=== PATIENT | male | born 1970 | race Two or more races ===

== ENCOUNTER 2023-12-27 08:00 | Outpatient (OUT) | payer OTHER, SELFPAY ==
[2023-12-27 08:25] LABS: Basophils Absolute Auto 0.1 10^3/uL (0.0-0.1); Basophils Percent Auto 2.3 % (0.2-2.0); Eosinophils Absolute Auto 0.3 10^3/uL (0.0-0.7); Hematocrit 45.9 % (42.0-54.0); Hemoglobin 14.9 g/dL (14.0-18.0); Immature Granulocytes Abs Auto 0.01 10^3/uL (0.00-0.03); Immature Granulocytes Pct Auto 0.2 % (0.0-0.5); Lymphocytes Absolute Auto 1.6 10^3/uL (1.2-3.8); Lymphocytes Percent Auto 31.2 % (20.5-60.0); Mean Corpuscular HGB Conc 32.5 g/dL (29.9-35.2); Mean Corpuscular Volume 95.4 fL (80.0-94.0); Monocytes Absolute Auto 0.5 10^3/uL (0.3-0.8); Monocytes Percent Auto 9.2 % (1.7-12.0); Neutrophils Absolute Auto 2.7 10^3/uL (1.4-6.5); Neutrophils Percent Auto 51.1 % (43.0-75.0); Platelet Count 229 10^3/uL (150-450); Red Blood Count 4.81 10^6/uL (4.70-6.10); Red Cell Distribution Width 11.5 % (11.0-15.0); White Blood Count 5.2 10^3/uL (4.0-11.0)
[2023-12-27 09:34] LABS: Alanine Aminotransferase 26 U/L (16-63); Albumin Globulin Ratio 1.2; Albumin Level 3.8 g/dL (3.4-5.0); Alkaline Phosphatase 46 U/L (46-116); Anion Gap 11.3; Aspartate Amino Transferase 12 U/L (15-37); BUN Creatinine Ratio 20.2; Bilirubin Total 0.8 mg/dL (0.2-1.0); Calcium 9.3 mg/dL (8.5-10.1); Carbon Dioxide 28.5 mmol/L (21.0-32.0); Chloride 102 mmol/L (98-107); Chol HDL Ratio 5.2; Cholesterol 244 mg/dL (<=200); Estimated GFR (African America >60 (>=60); Estimated GFR (Non-African Ame >60 (>=60); Globulin 3.3 g/dL; Glucose 90 mg/dL (74-106); HDL Cholesterol 47 mg/dL (40-60); Potassium 3.8 mmol/L (3.5-5.1); Sodium 138 mmol/L (136-145); Total Protein 7.1 g/dL (6.4-8.2); Triglycerides 73 mg/dL (<=150); VLDL CHOLESTEROL 14.6 mg/dL
[2023-12-27 09:44] LABS: Prostate Specific Antigen Scrn 1.14 ng/mL (<=4.00)
== END 2023-12-27 08:01 | disposition home or self-care (01) ==
LOC: LAB 08:05
PROVIDERS: PCP Nurse Practitioner Family; Visit Provider Nurse Practitioner Family
DX: Z13.228 Encounter for screening for other metabolic disorders (principal); Z12.5 Encounter for screening for malignant neoplasm of prostate; Z13.0 Encounter for screening for diseases of the blood and blood-forming organs and certain disorders involving the immune mechanism; Z13.220 Encounter for screening for lipoid disorders
CPT/HCPCS: 36415; 80053; 80061; 85025; G0103

== ENCOUNTER 2024-07-07 07:20 | Outpatient (OUT) | payer OTHER, SELFPAY ==
--- OUTSIDE RECORDS SUMMARY | 2024-07-07 07:28 | XMS_ITS | CCD ---
Author Organization [facility] Inform ion Partnership [facility] Care Team Providers Care Boat Patcher Plastic Name Role Phone DR RONEN CHANDLER Consulting Unavailable ESTER, KERA Caballero Attending Unavailable APLRACHAEL, KERA Caballero Admitting Unavailable HOUSE, DR PRINCE Primary Care Unavailable ESTER, KERA Caballero Consulting Unavailable HOUSE, DR PRINCE Attending Unavailable HOUSE, DR PRINCE Consulting Unavailable MOBILE, DR PRINCE Primary Care Unavailable HOUSE, DR PRINCE Admitting Unavailable RAMESH, DR RONEN Castano Consulting Unavailable JORGE LUIS FRANCISCO Consulting Unavailable Medications Current Medications Medication Drug Class(es) Dates Sig (Normalized) Sig (Original) omeprazole 20 mg delayed release oral capsule (1 source) Proton Pump Inhibitor Start: 12-25-2023 take 20 mg by mouth once daily Omeprazole Active 20 MG PO Daily December 25, 2023 12:00am Problems Problem Classification Problem Date Documented Da te Episodic/Chronic Disorders of lipid metabolism (2 sources) Hyperlipidemia; Translations: [Hyperlipidemia, unspecified] 01-21-2024 Chronic Esophageal disorders (2 sources) Gastroesophageal reflux disease; Translations: [Gastro-esophageal reflux disease without esophagitis] 12-25-2023 Chronic Other connective tissue disease (4 sources) Adhesive capsulitis of left shoulder; Translations: [ADHESIVE CAPSULITIS LEFT SHOULDER] Onset: 3 Episodic Other gastrointestinal disorders (1 source) Constipation; Translations: [Constipation, unspecified] 12-25-2023 Episodic Other gastrointestinal disorders (1 source) Constipation, unspecified; Translations: [Constipation, unspecified] 12-25-2023 Episodic Other non-traumatic joint disorders (4 sources) Other specific joint derangements of left shoulder, not elsewhere classified; Translations: [OTH SPEC JOINT DERANG LT SHLDR NEC] Onset: 3 Chronic Other screening for suspected conditions (not mental disorders or infectious disease) (10 sources) Patient encounter status; Translations: [Encounter for screening for malignant neoplasm of prostate] 12-25-2023 Episodic Results Test Name Value Interpretation Reference Range Facility Basophils Auto (Bld) [#/Vol] on 12-27-2023 Basophils (Bld) [#/Vol] 0.1 10 3/uL 0.0-0.1 [facility] Basophils/100 WBC Auto (Bld) on 12-27-2023 Basophils/100 WBC (Bld) 2.3 % 0.2-2.0 [facility] Cholesterol in LDL Calc [Mas s/Vol]on 12-27-2023 Cholesterol in LDL [Mass/Vol] 183.0 mg/dL [facility] Comment on above: <100 mg/dl [id number] 0-129 mg/dl NEAR OR ABOVE [id number] mg/dl BORDERLINE [id number] mg/dl HIGH>190 mg/dl VERY HIGH Cholesterol in VLDL Calc [Ma ss/Vol]on 12-27-2023 Cholesterol in VLDL [Mass/Vol] 14.6 mg/dL [facility] Eosinophils/100 WBC Auto (Bl d)on 12-27-2023 Eosinophils/100 WBC (Bld) 6.0 % 0.9-7.0 [facility] Erythrocyte distribution wid th Auto (RBC) [Ratio]on 12-27-2023 Erythrocyte distribution width (RBC) [Ratio] 11.5 % 11.0-15.0 [facility] Estimated glomerular filtrat ion rate (GFR) non- Americanon 12-27-2023 GFR/1.73 sq M.predicted among non-blacks MDRD (S/P/Bld) [Vol rate/Area] mL/min/{1.73_m2} >=60 [facility] Globulin Calc (S) [Mass/Vol] on 12-27-2023 Globulin (S) [Mass/Vol] 3.3 g/dL [facility] Hematocrit Auto (Bld) [Volum e fraction]on 12-27-2023 Hematocrit (Bld) [Volume fraction] 45.9 % 42.0-54.0 [facility] Hemoglobin [Mass/volume] in Bloodon 12-27-2023 Hemoglobin (Bld) [Mass/Vol] 14.9 g/dL 14.0-18.0 [facility] Laboratory - Chemistry and C hemistry - challengeon 12-27-2023 Albumin [Mass/Vol] 3.8 g/dL 3.4-5.0 [facility] ALP [Catalytic activity/Vol] 46 U/L 46-116 [facility] ALT [Catalytic activity/Vol] 26 U/L 16-63 [facility] AST [Catalytic activity/Vol] 12 U/L 15-37 [facility] Bilirubin [Mass/Vol] 0.8 mg/dL 0.2-1.0 [facility] Calcium [Mass/Vol] 9.3 mg/dL 8.5-10.1 [facility] Chloride [Moles/Vol] 102 mmol/L 98-107 [facility] Cholesterol [Mass/Vol] 244 mg/dL <=200 [facility] Cholesterol in HDL [Mass/Vol] 47 mg/dL 40-60 [facility] Comment on above: > or =60 mg/dl - LOW CARDIOVASCULAR RISK<40 mg/dl - HIGH CARDIOVASCULAR RISK CO2 [Moles/Vol] 28.5 mmol/L 21.0-32.0 [facility] Creatinine [Mass/Vol] 0.84 mg/dL 0.70-1.30 [facility] GFR/1.73 sq M.predicted MDRD (S/P/Bld) [Vol rate/Area] mL/min/{1.73_m2} >=60 [facility] Glucose [Mass/Vol] 90 mg/dL 74-106 [facility] Potassium [Moles/Vol] 3.8 mmol/L 3.5-5.1 [facility] Protein [Mass/Vol] 7.1 g/dL 6.4-8.2 [facility] Sodium [Moles/Vol] 138 mmol/L 136-145 [facility] Triglyceride [Mass/Vol] 73 mg/dL <=150 [facility] Urea nitrogen [Mass/Vol] 17.0 mg/dL 7.0-18.0 [facility] Urea nitrogen/Creatinine [Mass ratio] 20.2 mg/mg [facility] Laboratory - Hematology and Cell countson 12-27-2023 Immature granulocytes/100 WBC (Bld) 0.2 % 0.0-0.5 [facility] Leukocytes [#/volume] correc cristopher for nucleated erythrocytes in Blood by Automated counon 12-27-2023 WBC corrected for nucl RBC Auto (Bld) [#/Vol] 5.2 10 3/uL 4.0-11.0 [facility] Lymphocytes Auto (Bld) [#/Vo l]on 12-27-2023 Lymphocytes (Bld) [#/Vol] 1.6 10 3/uL 1.2-3.8 [facility] Lymphocytes/100 WBC Auto (Bl d)on 12-27-2023 Lymphocytes/100 WBC (Bld) 31.2 % 20.5-60.0 [facility] MCH Auto (RBC) [Entitic mass ]on 12-27-2023 MCH (RBC) [Entitic mass] 31.0 pg 25.9-34.0 [facility] MCHC Auto (RBC) [Mass/Vol]on 12-27-2023 MCHC (RBC) [Mass/Vol] 32.5 g/dL 29.9-35.2 [facility] MCV Auto (RBC) [Entitic vol] on 12-27-2023 MCV (RBC) [Entitic vol] 95.4 fL 80.0-94.0 [facility] Monocytes Auto (Bld) [#/Vol] on 12-27-2023 Monocytes (Bld) [#/Vol] 0.5 10 3/uL 0.3-0.8 [facility] Monocytes/100 WBC Auto (Bld) on 12-27-2023 Monocytes/100 WBC (Bld) 9.2 % 1.7-12.0 [facility] Neutrophils Auto (Bld) [#/Vo l]on 12-27-2023 Neutrophils (Bld) [#/Vol] 2.7 10 3/uL 1.4-6.5 [facility] Neutrophils/100 WBC Auto (Bl d)on 12-27-2023 Neutrophils/100 WBC (Bld) 51.1 % 43.0-75.0 [facility] No Panel Informationon 12-26 Eosinophils # (Auto) 0.3 10 3/uL 0.0-0.7 [facility] Immature Granulocyte # (Auto) 0.01 10 3/uL 0.00-0.03 [facility] Prostate Specific Antigen Screen 1.14 ng/mL <=4.00 [facility] Platelet mean volume Auto (B ld) [Entitic vol]on 12-27-2023 Platelet mean volume (Bld) [Entitic vol] 10.0 fL 9.5-13.5 [facility] Platelets Auto (Bld) [#/Vol] on 12-27-2023 Platelets (Bld) [#/Vol] 229 10 3/uL 150-450 [facility] RBC Auto (Bld) [#/Vol]on RBC (Bld) [#/Vol] 4.81 10 6/uL 4.70-6.10 [facility] Serum or plasma albumin/glob ulin mass ratioon 12-27-2023 Albumin/Globulin [Mass ratio] 1.2 {ratio} [facility] Serum or plasma anion gap de terminationon 12-27-2023 Anion gap [Moles/Vol] 11.3 mmol/L [facility] Serum or plasma total choles terol/high density lipoprotein (HDL) cholesterol mass christi 12-27-2023 Cholesterol.total/Ch olesterol in HDL [Mass ratio] 5.2 {ratio} [facility] Comment on above: 3.3 - 4.4 LOW RISK4. 4 - 7.1 AVERAGE RISK7.1 - 11.0 MODERATE RISK>11.0 HIGH RISK MRI SHOULDER LT WO CONon MRI SHOULDER LT WO CON EXAMINATION: MRI SHOULDER LT WO CON HISTORY: Derangement of left shoulder joint COMPARISON: No relevant comparison available. TECHNIQUE: A variety of imaging planes and parameters were utilized for visualization of suspected pathology. Imaging was performed without contrast. FINDINGS: ROTATOR CUFF REGION CUFF TENDONS: Moderately increased T2 signal within the supraspinatus tendon with suspected partial thickness tear along the undersurface. Mild strain of the subscapularis tendon. CUFF MUSCLES: Normal appearing muscles. DELTOID: Normal. No significant atrophy or tear. LONG BICEPS TENDON: Normal. No abnormal signal, attrition, or tear. LABRUM/BICEPS ANCHOR SUPERIOR: No visible labral tear or biceps anchor pathology. ANTERIOR/INFERIOR: No visible tear or attrition. POSTERIOR: No posterior labrum abnormality. CAPSULE No visible capsular laxity or thickening. AC JOINT REGION AC JOINT: Moderate osteoarthropathy with mild-moderate narrowing of the underlying coracoacromial arch. AC LIGAMENTS: Normal acromioclavicular ligament. CC LIGAMENTS: Normal coracoclavicular ligaments. ACROMION: Lateral downsloping acromion process. SUBACROMIAL BURSA: Normal. No significant effusion. HYALINE CARTILAGE: No visible cartilage narrowing or focal defect. OTHER BONES: Normal proximal humerus, glenoid, and coracoid. OTHER OBSERVATIONS: Negative. No other significant findings or glenohumeral effusion. IMPRESSION: 1. Suspect partial thickness undersurface tear of the supraspinatus tendon and generalized moderate tendinopathy/tendiniti s of the supraspinatus and infraspinatus tendons. 2. Moderate degenerative changes of the acromioclavicular joint and lateral downsloping acromion process. Electronically authenticated by: RONEN CHANDLER Date: 2022-12-22 09:18 Normal [facility] XR SHOULDER LT 2V or >on XR SHOULDER LT 2V or > EXAM: XR SHOULDER LT 2V or > HISTORY: Pain of left shoulder region COMPARISON: None. TECHNIQUE: 3 views of the left shoulder FINDINGS/ IMPRESSION: 1. Normal mineralization. 2. No acute fractures or dislocations. 3. Mild AC joint degeneration. Normal glenohumeral joint. 4. Unremarkable soft tissues. Electronically authenticated by: JORGE LUIS FRANCISCO Date: 2022-12-05 07:38 Normal [facility] Vital Signs Date Time Vital Sign Value Performing Clinician Samuel lopez 01-21-2024 08:00-0400 Body height 175.26 cm [facility] 01-21-2024 08:00-0400 Body mass index (BMI) [Ratio] 24.2 kg/m2 [facility] 01-21-2024 08:00-0400 Body weight 74.38 kg [facility] 01-21-2024 08:00-0400 Diastolic blood pressure 62 mm[Hg] [facility] 01-21-2024 08:00-0400 Heart rate 64 /min [facility] 01-21-2024 08:00-0400 SaO2% (BldA) [Mass fraction] 98 % [facility] 01-21-2024 08:00-0400 Systolic blood pressure 104 mm[Hg] [facility] 12-25-2023 09:03-0400 Body height 175.26 cm [facility] 12-25-2023 09:03-0400 Body mass index (BMI) [Ratio] 24.5 kg/m2 [facility] 12-25-2023 09:03-0400 Body weight 75.29 kg [facility] 12-25-2023 09:03-0400 Diastolic blood pressure 72 mm[Hg] [facility] 12-25-2023 09:03-0400 Heart rate 88 /min [facility] 12-25-2023 09:03-0400 SaO2% (BldA) [Mass fraction] 99 % [facility] 12-25-2023 09:03-0400 Systolic blood pressure 110 mm[Hg] [facility] Encounters Encounter Date Encounter Type Care Provider Facility Start: 01-21-2024 Patient encounter status [facility] Start: 01-21-2024 End: 01-21-2024 ambulatory [facility] Work Phone: Start: 01-21-2024 End: 01-21-2024 Encounter for general adult medical examination without abnormal findings [facility] Start: 01-21-2024 End: 01-21-[address] [facility] Physician [facility] Work Phone: Start: 12-27-2023 Non-patient / Non-visit [facility] Physician [facility] Work Phone: Start: 12-25-2023 End: 12-25-[address] [facility] Physician [facility] Work Phone: Start: 12-21-2022 End: 12-22-[address] RONEN CHANDLER Facility:[facility] Start: 11-29-2022 End: 11-30-[address] SURESH PONCE Facility:[facility] Plan of Treatment Date Care Activity Detail Author [facility] Payers Date Payer Category Payer Unknown [id number] 1970 Unknown [id number] 1959 [employer] [id number] [employer] [facility] [id number] Social History Date Type Detail Facility Start: 01-21-2024 Tobacco smoking stat us NJIS Never smoked tobacco (finding) [facility] Start: 1970 Sex Assigned At Male F [facility] Clinical Note 12-04-2022 Note Date & Type Note Facility 12-04-2022 Note PROCEDURE: XR SHOULD ER LT 2V or > HISTORY: Pain of left shoulder region , chronic COMPARISON: None. FINDINGS: BONES:Minimal degenerative changes of the acromioclavicular joint. Unremarkable humeral head and glenohumeral joint. SOFT TISSUES:No visible soft tissue swelling. EFFUSION:None visible. OTHER: Negative. IMPRESSION: 1. No acute bone abnormality. 2. Minimal degenerative changes of the acromioclavicular joint. Electronically authenticated by: RONEN CHANDLER Date: 2022-12-04 06:48 [facility] Evaluation note Note Date & Type Note Facility Evaluation note Diagnosis Onset Date Constipation acute GERD (gastroesophageal reflux disease) acute Screen for colon cancer acut e Screening for deficiency anemia acute Screening for lipid disorders acute Screening for metabolic disorder acute Screening for prostate cancer acute Hyperlipidemia acute Wellness examination acute [facility] Work Phone: Summary Purpose Family History Relationship Condition Age at Onset Recorded Date/T joyce Not Specified Malignant neoplasm Unknown Bowel dysfunction Unknown father Cerebrovascular accident (CVA) Unknown Not Specified Cerebrovascular accident (CVA) Unknown Advance Directives Advance Directive Response Recorded Date/ Time Advance Directives No December 20, 2023 2:54pm Chief Complaint and Reason for Visit Chief Complaint ESTABLISH wellness Reason for Visit Constipation GERD (gastroesophageal reflux disease) Screen for colon cancer Screening for deficiency anemia Screening for lipid disorders Screening for metabolic disorder Screening for prostate cancer Hyperlipidemia Wellness examination Additional Source Comments (unrecognized sect ion and content) No Status Records Found INFORMATION SOURCE (unrecogn ized section and content) DATE CREATED AUTHOR 12/28/2022 [facility] Teams (unrecognized sec tion and content) Team Status: Active Member Role Status Dates Simi Watts APRN CONTACT LENS MANUFACTURER-C Primary Care Provider Active Team Status: Inactive Member Role Status Dates Simi Watts APRN CONTACT LENS MANUFACTURER-C Primary Care Provider, Attending Provider Active Start: December 25, 2023 End: December 25, 2023 Team Status: Active Member Role Status Dates Simi Watts APRN CONTACT LENS MANUFACTURER-C Primary Care Provider, Attending Provider Active Start: December 27, 2023 Team Status: Inactive Member Role Status Dates Simi Watts APRN CONTACT LENS MANUFACTURER-C Primary Care Provider, Attending Provider Active Start: January 21, 2024 End: January 21, 2024 Goals (unrecognized section and content) Goals may be documented in a n alternate section FOR RECORDS PERTAINING TO PATIENTS WHO ARE OR HAVE BEEN ENROLLED IN A CHEMICAL DEPENDENCY/SUBSTANCEABUSE PROGRAM, SOME INFORMATION MAY BE OMITTED. This clinical summary was aggregated from multiple sources. Caution should be exercised in using it in the provision of clinical care. This summary normalizes information from multiple sources, and as a consequence, information in this document may materially change the coding, format and clinical context of patient data. In addition, data may be omitted in some cases. CLINICAL DECISIONS SHOULD BE BASED ON THE PRIMARY CLINICAL RECORDS. [facility] [employer] [facility]. provides no warranty or guarantee of the accuracy or completeness of information in this document.
[2024-07-07 08:16] LABS: Chol HDL Ratio 3.6; Cholesterol 202 mg/dL (<=200); HDL Cholesterol 56 mg/dL (40-60); Triglycerides 81 mg/dL (<=150); VLDL CHOLESTEROL 16.2 mg/dL
== END 2024-07-07 07:21 | disposition home or self-care (01) ==
LOC: LAB 07:23
PROVIDERS: PCP Nurse Practitioner Family; Visit Provider Nurse Practitioner Family
DX: E78.5 Hyperlipidemia, unspecified (principal)
CPT/HCPCS: 36415; 80061

== ENCOUNTER 2025-01-26 07:28 | Outpatient (OUT) | payer OTHER, SELFPAY ==
--- OUTSIDE RECORDS SUMMARY | 2025-01-21 04:36 | XMS_ITS | Continuity of Care Document ---
Author Organization [facility] Address [address] [place] [address] Phone Support Name Relationship Address Phone Donavan George Emergency Contact Unknown Simi Watts APRN Personal Relationship [address] [place] [address] Care Teams Patient Care Team Team Status: Active Member Role Status Dates Simi Watts APRN AIR POLLUTION AUDITOR-C Primary Care Provider Active Patient Care Team Team Status: Inactive Member Role Status Dates Simi Watts APRN AIR POLLUTION AUDITOR-C Primary Care Provider, Attending Provider Active Start: January 21, 2025 End: January 21, 2025 Chief Complaint and Reason for Visit Chief Complaint Admit Date wellness January 21, 2025 7:59a m Reason for Visit Admit Date Screen for colon cancer January 21, 2025 7 :59am Screening for deficiency anemia January 7:59am Screening for lipid disorders January 21, 2025 7:59am Screening for metabolic disorder January 7:59am Screening for prostate cancer January 21, 2025 7:59am Wellness examination January 21, 2025 7:59 am Allergies, Adverse Reactions, Alerts Allergen Type Severity Reaction Last Updated Verified Status Milk Containing Products (Dairy) Allergy Unknown Unknown Reaction January 21, 2025 8:00am Yes Active Social History Smoking Status Status Start Date End Date Date of Observa tion Never smoked tobacco (finding) January 21, 2025 8:10am Observation Status Observation Response Date of Response Patient Sex Male January 21, 2025 8 :35am Assigned Sex Male 1970 Family History Relationship Condition Age at Onset Recorded Date/T joyce mother Malignant neoplasm Unknown Bowel dysfunction Unknown father Cerebrovascular accident (CVA) Unknown paternal grandfather Cerebrovascular accident (CVA) Un known Problems Active Problems Medical Problem Onset Date Status Lesion of lip Active Screening for prostate cancer Ac tive Screen for colon cancer Active Screening for deficiency anemia Active Wellness examination Active Hyperlipidemia Active Screening for metabolic disorder Active Screening for lipid disorders Ac tive GERD (gastroesophageal reflux disease) Active Constipation Active Sore throat Active Medications Medication Status Dose Units Route Directions Qty Days St art Date Stop Date End Date Instructions Multivitamin (One-A-Day Essential) tablet Active 1 TAB PO Daily January 21, 2025 12:00a m Omeprazole 20 mg capsule,bertha yed release(DR/E C) Discont inued 20 MG PO Daily 30 December 25, 2023 12:00a m January 21, 2025 8:07a m Vital Signs Vital Reading Result Reference Range Collection Date/Time Height 69 [in_i] January 21, 2025 8:03am Weight 75.29 kg January 21, 2025 8:03am Body Temperature 97.1 [degF] 97.6-99.0 January 21, 8:03am Heart Rate 67 /min 60-100 January 21, 2025 8:03am Oxygen saturation by Pulse oximetry 98 % 95-10 0 January 21, 2025 8:03am BP Systolic 116 mm[Hg] 100-140 January 21, 2025 8:03am BP Diastolic 70 mm[Hg] 60-100 January 21, 2025 8:03am BMI (Body Mass Index) 24.5 kg/m2 January 212024 8:03am Advance Directives Advance Directive Response Recorded Date/ Time Advance Directives No December 20, 2023 2:54pm Insurance Providers Guarantor Robin Bills Address [address] [place] [address] Contact Info. Home Phone: Payer Policy Id Coverage Id Subscriber's Name Subscriber Id Effective Date Expiration Date [facility] [id number] Robin Bills [id number] Encounters Encounter Location(s) Arrival/Admit Date Discharge/Depart Date Provider(s) Departed Physician/Prov ider Office Visit [facility] Physician [facility] January 21, 2025 7:59am January 21, 2025 8:35am Simi Watts APRN CNP Recent Diagnosis Onset Date Admit Date Screen for colon cancer January 7:59am Screening for deficiency anemia January 21, 2025 7:59am Screening for lipid disorders Ju 2024 7:59am Screening for metabolic disorder January 21, 2025 7:59am Screening for prostate cancer Ju 2024 7:59am Wellness examination January 21, 2 7:59am Assessments Diagnosis Onset Date Resolution Status Admit Date Screen for colon cancer acute J une 2024 7:59am Screening for deficiency anemia acut e January 21, 2025 7:59am Screening for lipid disorders acute January 21, 2025 7:59am Screening for metabolic disorder acu te January 21, 2025 7:59am Screening for prostate cancer acute January 21, 2025 7:59am Wellness examination acute January 21, 2025 7:59am Plan of Treatment Future Tests Future scheduled test information is unavailable Pending Tests Test Name Ordered Date Scheduled Date Comprehensive Metabolic Panel January 21, 2025 8:1 9am Future Visits Future appointment information is unavailable Referrals to Other Providers Referral information is unavailable Future Procedures Procedure Name Ordered Date Scheduled Date AMB Cologuard January 21, 2025 8:14am Complete Blood Count Auto Diff January 21, 2025 8: 19am Lipid Panel January 21, 2025 8:19am PSA Screen (Yearly Only) January 21, 2025 8:19am Future Medications Future medication information is unavailable Patient Instructions Patient instructions are unavailable
--- OUTSIDE RECORDS SUMMARY | 2025-01-26 07:32 | XMS_ITS | Clinical Summary ---
Author Organization [facility] Address [address] [place] [place] [address] Care Team Providers Care Multifocal Button Generator Name Role Phone House, Torres King MD Primary Care Provider [phone] Allergies Active Allergy Reactions Criticality Noted Date Comments Fire Ant Swelling 11/23/2020 Milk-Related Compounds Unknown 01/03/2023 Medications Ascorbic Acid (VITAMIN C PO) Vitamin C Activ e Meloxicam (MOBIC PO) Mobic Active acetaminophen (Tylenol) 325 MG tablet Take by mouth. Active ibuprofen 200 MG tablet Take by mouth. Active Active Problems Problem Noted Date Diagnosed Date Arthritis of left acromioclavicular joint 2022 Internal derangement of left shoulder 01/03/2023 Family History Medical History Relation Name Comments Cancer Mother Relation Name Status Comments Father Alive Mother Alive Social History Tobacco Use Types Packs/Day Years Used Date Smoking Tobacco: Never Smokeless Tobacco: Never Tobacco Cessation:Counseling Given: Not Answered Alcohol Use Standard Drinks/Week Comments Yes 0 (1 standard drink = 0.6 oz pur e alcohol) socially Sex and Gender Information Value Date Recorded Sex Assigned at Not on file Legal Sex Male 12:17 PM EDT Gender Identity Not on file Sexual Orientation Not on file Last Filed Vital Signs Vital Sign Reading Time Taken Comments Blood Pressure - - Pulse - - Temperature - - Respiratory Rate - - Oxygen Saturation - - Inhaled Oxygen Concentration - - Weight 72.6 kg (160 lb) 12/18/2022 12:00 PM EDT Height 175.3 cm (5' 9 ) 12/18/2022 12:00 PM EDT Body Mass Index 23.63 12/18/2022 12:00 PM EDT Plan of Treatment Not on file Insurance Care Teams Multifocal Button Generator Relationship Specialty Start Date End Date Torres Sandoval MD [address] [place] [address] PCP - General Family Medicine 01/03/23
--- OUTSIDE RECORDS SUMMARY | 2025-01-26 07:32 | XMS_ITS | Clinical Summary ---
Author Organization [facility] Address [address] [place] [address] Care Team Providers Care Public Health Representative Name Role Phone Unavailable Primary Care Provider Unavailabl e Allergies Active Allergy Reactions Criticality Noted Date Comments Fire Ant Swelling 11/23/2020 Milk (Cow) Other (See Comments) 06/18/2017 Pt has had since child. He is unaware of rxn Medications ascorbic acid (VITAMIN C) 500 MG tablet Take 500 mg by mouth daily Active diclofenac (VOLTAREN) 75 MG EC tablet Take 75 mg by mouth 2 times daily 1 Active methylPREDNISol one (MEDROL DOSEPACK) 4 MG tablet FOLLOW PACKAGE INSTRUCTIONS 1 Active traZODone (DESYREL) 100 MG tablet Take 100 mg by mouth 1 Active Family History Medical History Relation Name Comments High Cholesterol Father Breast Cancer Mother Colon Polyps Mother Relation Name Status Comments Father Mother Sister Alive Social History Tobacco Use Types Packs/Day Years Used Date Smoking Tobacco: Never Smokeless Tobacco: Never Alcohol Use Standard Drinks/Week Comments Yes 2 (1 standard drink = 0.6 oz pur e alcohol) Sex and Gender Information Value Date Recorded Sex Assigned at Not on file Legal Sex Male 5:10 PM EST Gender Identity Not on file Sexual Orientation Not on file Last Filed Vital Signs Vital Sign Reading Time Taken Comments Blood Pressure 129/69 11/23/2020 1:53 PM EDT Pulse 72 11/23/2020 1:53 PM EDT Temperature - - Respiratory Rate - - Oxygen Saturation - - Inhaled Oxygen Concentration - - Weight 74.8 kg (165 lb) 07/01/2021 10:31 AM EST Height 175.3 cm (5' 9 ) 07/01/2021 10:31 AM EST Body Mass Index 24.37 07/01/2021 10:31 AM EST Plan of Treatment Not on file
--- OUTSIDE RECORDS SUMMARY | 2025-01-26 07:32 | XMS_ITS | Encounter Summary ---
Author Organization [facility] Address [address] [place] [address] Care Team Providers Care Bore Mill Operator For Plastic Name Role Phone Torres Sandoval MD Primary Care Provider [phone] Encounter Details Date Type Department Care Team ([facility] st Contact Info) Description 02/13/2023 Abstract [facility] [address] [place] [id number] Valdo Thomas, RENEE Social History Tobacco Use Types Packs/Day Years Used Date Smoking Tobacco: Never Smokeless Tobacco: Never Alcohol Use Standard Drinks/Week Comments Yes 0 (1 standard drink = 0.6 oz pur e alcohol) socially Sex and Gender Information Value Date Recorded Sex Assigned at Not on file Legal Sex Male 12:17 PM EDT Gender Identity Not on file Sexual Orientation Not on file documented as of this encounter Plan of Treatment Not on file documented as of this encounter Visit Diagnoses Not on filedocumented in this encounter Care Teams Bore Mill Operator For Plastic Relationship Specialty Start Date End Date Torres Sandoval MD [address] [place] [address] PCP - General Family Medicine 01/03/23 documented as of this encounter
--- OUTSIDE RECORDS SUMMARY | 2025-01-26 07:32 | XMS_ITS | Encounter Summary ---
Author Organization [facility] Address [address] [facility] [place] [address] Care Team Providers Care Coppersmith Helper Name Role Phone Torres Sandoval MD Primary Care Provider [phone] Encounter Details Date Type Department Care Team ([facility] st Contact Info) Description 01/30/2023 Abstract [facility] [address] [facility] [address] [place] [address] Luca Kan, PT [address] [facility] [address] [place] [address] Social History Tobacco Use Types Packs/Day Years [...] on filedocumented in this encounter Care Teams Coppersmith Helper Relationship Specialty Start Date End Date Torres Sandoval MD [address] [place] [address] PCP - General Family Medicine 01/03/23 documented as of this encounter
--- OUTSIDE RECORDS SUMMARY | 2025-01-26 07:45 | XMS_ITS | CCD ---
Author Organization [facility] Care Team Providers Care Auto Club Travel Counselor Name Role Phone DR RONEN CHANDLER Consulting Unavailable ESTER, KERA Caballero Attending Unavailable APLRACHAEL, KERA Caballero Admitting Unavailable HOUSE, DR PRINCE Primary Care Unavailable ESTER, KERA Caballero Consulting Unavailable HOUSE, DR PRINCE Attending Unavailable HOUSE, DR PRINCE Consulting Unavailable [place], DR PRINCE Primary Care Unavailable HOUSE, DR PRINCE Admitting Unavailable RAMESH, DR RONEN Castano Consulting Unavailable MARYAMJORGE LUIS Consulting Unavailable Medications Current Medications Medication Drug Class(es) Dates Sig (Normalized) Sig (Original) omeprazole 20 mg delayed release oral capsule (2 sources) Proton Pump Inhibitor Start: 12-25-2023 take 1 capsule by mouth once daily Omeprazole 20 mg capsule,delayed release(DR/EC) Active 20 MG PO Daily December 24, 2023 11:00pm Problems Problem Classification Problem Date Documented Da te Episodic/Chronic Diseases of mouth; excluding dental (1 source) Lesion of lip; Translations: [Diseases of lips] 01-21-2024 Episodic Disorders of lipid metabolism (3 sources) Hyperlipidemia; Translations: [Hyperlipidemia, unspecified] 01-21-2024 Chronic Esophageal disorders (3 sources) Gastroesophageal reflux disease; Translations: [Gastro-esophageal reflux disease without esophagitis] 12-25-2023 Chronic Other connective tissue disease (4 sources) Adhesive capsulitis of left shoulder; Translations: [ADHESIVE CAPSULITIS LEFT SHOULDER] Onset: 3 Episodic Other gastrointestinal disorders (2 sources) Constipation; Translations: [Constipation, unspecified] 12-25-2023 Episodic Other gastrointestinal disorders (1 source) Constipation, unspecified; Translations: [Constipation, unspecified] 12-25-2023 Episodic Other non-traumatic joint disorders (4 sources) Other specific joint derangements of left shoulder, not elsewhere classified; Translations: [OTH SPEC JOINT DERANG LT SHLDR NEC] Onset: 3 Chronic Other screening for suspected conditions (not mental disorders or infectious disease) (15 sources) Patient encounter status; Translations: [Encounter for screening for malignant neoplasm of prostate] 12-25-2023 Episodic Other upper respiratory infections (2 sources) Sore throat symptom; Translations: [Acute pharyngitis, unspecified] 09-19-2024 Episodic Results Test Name Value Interpretation Reference Range Facility No Panel InformationOrdered By: Simi Watts on 09-19-2024 Quick Strep (POC) [facility] Cholesterol in LDL Calc [Mas s/Vol]on 07-07-2024 Cholesterol in LDL [Mass/Vol] Cholesterol in LDL [Mass/volume] in Serum or Plasma by calculation [facility] Comment on above: <100 mg/dl [id number] 0-129 mg/dl NEAR OR ABOVE [id number] mg/dl BORDERLINE [id number] mg/dl HIGH>190 mg/dl VERY HIGH Cholesterol in VLDL Calc [Ma ss/Vol]on 07-07-2024 Cholesterol in VLDL [Mass/Vol] Cholesterol in VLDL [Mass/volume] in Serum or Plasma by calculation [facility] - Chemistry and C hemistry - challengeon 07-07-2024 Cholesterol [Mass/Vol] 202 mg/dL High <=200 Fi [facility] Cholesterol in HDL [Mass/Vol] 56 mg/dL 40-60 [facility] Comment on above: > or =60 mg/dl - LOW CARDIOVASCULAR RISK<40 mg/dl - HIGH CARDIOVASCULAR RISK Triglyceride [Mass/Vol] 81 mg/dL <=150 F [facility] Serum or plasma total choles terol/high density lipoprotein (HDL) cholesterol mass christi 07-07-2024 Cholesterol.total/Holly sterol in HDL [Mass ratio] Serum or plasma total cholesterol/high density lipoprotein (HDL) cholesterol mass rat [facility] Comment on above: 3.3 - 4.4 LOW RISK4. 4 - 7.1 AVERAGE RISK7.1 - 11.0 MODERATE RISK>11.0 HIGH RISK Basophils Auto (Bld) [#/Vol] on 12-27-2023 Basophils (Bld) [#/Vol] 0.1 10 3/uL 0.0-0.1 [facility] Basophils/100 WBC Auto (Bld) on 12-27-2023 Basophils/100 WBC (Bld) 2.3 % 0.2-2.0 F [facility] Cholesterol in LDL Calc [Mas s/Vol]on 12-27-2023 Cholesterol in LDL [Mass/Vol] 183.0 mg/dL [facility] Comment on above: <100 mg/dl [id number] 0-129 mg/dl NEAR OR ABOVE [id number] mg/dl BORDERLINE [id number] mg/dl HIGH>190 mg/dl VERY HIGH Cholesterol in VLDL Calc [Ma ss/Vol]on 12-27-2023 Cholesterol in VLDL [Mass/Vol] 14.6 mg/dL [facility] Eosinophils/100 WBC Auto (Bl d)on 12-27-2023 Eosinophils/100 WBC (Bld) 6.0 % 0.9-7.0 [facility] Erythrocyte distribution wid th Auto (RBC) [Ratio]on 12-27-2023 Erythrocyte distribution width (RBC) [Ratio] 11.5 % 11.0-15.0 [facility] Estimated glomerular filtrat ion rate (GFR) non- Americanon 12-27-2023 GFR/1.73 sq M.predicted among non-blacks MDRD (S/P/Bld) [Vol rate/Area] mL/min/{1.73_m2} >=60 [facility] Globulin Calc (S) [Mass/Vol] on 12-27-2023 Globulin (S) [Mass/Vol] 3.3 g/dL F [facility] Hematocrit Auto (Bld) [Volum e fraction]on 12-27-2023 Hematocrit (Bld) [Volume fraction] 45.9 % 42.0-54.0 [facility] Hemoglobin [Mass/volume] in Bloodon 12-27-2023 Hemoglobin (Bld) [Mass/Vol] 14.9 g/dL 14.0-18.0 [facility] - Chemistry and C hemistry - challengeon 12-27-2023 Albumin [Mass/Vol] 3.8 g/dL 3.4-5.0 [facility] ALP [Catalytic activity/Vol] 46 U/L 46-116 [facility] ALT [Catalytic activity/Vol] 26 U/L 16-63 [facility] AST [Catalytic activity/Vol] 12 U/L 15-37 [facility] Bilirubin [Mass/Vol] 0.8 mg/dL 0.2-1.0 [facility] Calcium [Mass/Vol] 9.3 mg/dL 8.5-10.1 [facility] Chloride [Moles/Vol] 102 mmol/L 98-107 [facility] Cholesterol [Mass/Vol] 244 mg/dL <=200 [facility] Cholesterol in HDL [Mass/Vol] 47 mg/dL 40-60 [facility] Comment on above: > or =60 mg/dl - LOW CARDIOVASCULAR RISK<40 mg/dl - HIGH CARDIOVASCULAR RISK CO2 [Moles/Vol] 28.5 mmol/L 21.0-32.0 [facility] Creatinine [Mass/Vol] 0.84 mg/dL 0.70-1.30 [facility] GFR/1.73 sq M.predicted MDRD (S/P/Bld) [Vol rate/Area] mL/min/{1.73_m2} >=60 [facility] Glucose [Mass/Vol] 90 mg/dL 74-106 [facility] Potassium [Moles/Vol] 3.8 mmol/L 3.5-5.1 [facility] Protein [Mass/Vol] 7.1 g/dL 6.4-8.2 [facility] Sodium [Moles/Vol] 138 mmol/L 136-145 [facility] Triglyceride [Mass/Vol] 73 mg/dL <=150 [facility] Urea nitrogen [Mass/Vol] 17.0 mg/dL 7.0-18.0 [facility] Urea nitrogen/Creatinine [Mass ratio] 20.2 mg/mg [facility] Laboratory - Hematology and Cell countson 12-27-2023 Immature granulocytes/100 WBC (Bld) 0.2 % 0.0-0.5 [facility] Leukocytes [#/volume] correc cristopher for nucleated erythrocytes in Blood by Automated counon 12-27-2023 WBC corrected for nucl RBC Auto (Bld) [#/Vol] 5.2 10 3/uL 4.0-11.0 [facility] Lymphocytes Auto (Bld) [#/Vo l]on 12-27-2023 Lymphocytes (Bld) [#/Vol] 1.6 10 3/uL 1.2-3.8 [facility] Lymphocytes/100 WBC Auto (Bl d)on 12-27-2023 Lymphocytes/100 WBC (Bld) 31.2 % 20.5-60.0 [facility] MCH Auto (RBC) [Entitic mass ]on 12-27-2023 MCH (RBC) [Entitic mass] 31.0 pg 25.9-34.0 [facility] MCHC Auto (RBC) [Mass/Vol]on 12-27-2023 MCHC (RBC) [Mass/Vol] 32.5 g/dL 29.9-35.2 [facility] MCV Auto (RBC) [Entitic vol] on 12-27-2023 MCV (RBC) [Entitic vol] 95.4 fL 80.0-94.0 [facility] Monocytes Auto (Bld) [#/Vol] on 12-27-2023 Monocytes (Bld) [#/Vol] 0.5 10 3/uL 0.3-0.8 [facility] Monocytes/100 WBC Auto (Bld) on 12-27-2023 Monocytes/100 WBC (Bld) 9.2 % 1.7-12.0 [facility] Neutrophils Auto (Bld) [#/Vo l]on 12-27-2023 Neutrophils (Bld) [#/Vol] 2.7 10 3/uL 1.4-6.5 [facility] Neutrophils/100 WBC Auto (Bl d)on 12-27-2023 Neutrophils/100 WBC (Bld) 51.1 % 43.0-75.0 [facility] No Panel Informationon 12-26 Eosinophils # (Auto) 0.3 10 3/uL 0.0-0.7 [facility] Immature Granulocyte # (Auto) 0.01 10 3/uL 0.00-0.03 [facility] Prostate Specific Antigen Screen 1.14 ng/mL <=4.00 [facility] Platelet mean volume Auto (B ld) [Entitic vol]on 12-27-2023 Platelet mean volume (Bld) [Entitic vol] 10.0 fL 9.5-13.5 [facility] Platelets Auto (Bld) [#/Vol] on 12-27-2023 Platelets (Bld) [#/Vol] 229 10 3/uL 150-450 [facility] RBC Auto (Bld) [#/Vol]on RBC (Bld) [#/Vol] 4.81 10 6/uL 4.70-6.10 [facility] Serum or plasma albumin/glob ulin mass ratioon 12-27-2023 Albumin/Globulin [Mass ratio] 1.2 {ratio} [facility] Serum or plasma anion gap de terminationon 12-27-2023 Anion gap [Moles/Vol] 11.3 mmol/L Fi [facility] Serum or plasma total choles terol/high density lipoprotein (HDL) cholesterol mass christi 12-27-2023 Cholesterol.total/Holly sterol in HDL [Mass ratio] 5.2 {ratio} [facility] Comment on above: 3.3 - 4.4 LOW [...] of the supraspinatus tendon and generalized moderate tendinopathy/tendinit is of the supraspinatus and infraspinatus tendons. 2. Moderate degenerative changes of the acromioclavicular joint and lateral downsloping acromion process. Electronically authenticated by: RONEN CHANDLER Date: 2022-12-22 09:18 Normal [facility] XR SHOULDER LT 2V or >on XR [...] FRANCISCO Date: 2022-12-05 07:38 Normal [facility] Vital Signs Date Time Vital Sign Value Performing Clinician Samuel lopez 09-19-2024 09:21-0500 Body height 175.26 cm [facility] 09-19-2024 09:21-0500 Body mass index (BMI) [Ratio] 24.5 kg/m2 [facility] 09-19-2024 09:21-0500 Body temperature 98.4 [degF] [facility] 09-19-2024 09:21-0500 Body weight 75.29 kg [facility] 09-19-2024 09:21-0500 Diastolic blood pressure 70 mm[Hg] [facility] 09-19-2024 09:21-0500 Heart rate 80 /min [facility] 09-19-2024 09:21-0500 SaO2% (BldA) [Mass fraction] 98 % [facility] 09-19-2024 09:21-0500 Systolic blood pressure 116 mm[Hg] [facility] 01-21-2024 08:00-0400 Body height 175.26 cm [facility] 01-21-2024 08:00-0400 Body mass index (BMI) [Ratio] 24.2 kg/m2 [facility] 01-21-2024 08:00-0400 Body weight 74.38 kg [facility] 01-21-2024 08:00-0400 Diastolic blood pressure 62 mm[Hg] [facility] 01-21-2024 08:00-0400 Heart rate 64 /min [facility] 01-21-2024 08:00-0400 SaO2% (BldA) [Mass fraction] 98 % [facility] 01-21-2024 08:00-0400 Systolic blood pressure 104 mm[Hg] [facility] 12-25-2023 09:03-0400 Body height 175.26 cm [facility] 12-25-2023 09:03-0400 Body mass index (BMI) [Ratio] 24.5 kg/m2 [facility] 12-25-2023 09:03-0400 Body weight 75.29 kg [facility] 12-25-2023 09:03-0400 Diastolic blood pressure 72 mm[Hg] [facility] 12-25-2023 09:03-0400 Heart rate 88 /min [facility] 12-25-2023 09:03-0400 SaO2% (BldA) [Mass fraction] 99 % [facility] 12-25-2023 09:03-0400 Systolic blood pressure 110 mm[Hg] [facility] Encounters Encounter Date Encounter Type Care Provider Facility Start: 09-19-2024 End: 09-19-2024 ambulatory [facility] Work Phone: Start: 09-19-2024 End: 09-19-2024 Patient encounter procedure [facility] Work Phone: Start: 07-07-2024 Non-patient / Non-visit [facility] Work Phone: Start: 01-21-2024 Patient encounter status [facility] Start: 01-21-2024 End: 01-21-2024 ambulatory [facility] Work Phone: Start: 01-21-2024 End: 01-21-2024 Encounter for general adult medical examination without abnormal findings [facility] Start: 01-21-2024 End: 01-21-2024 Patient encounter procedure [facility] Work Phone: Start: 12-27-2023 Non-patient / Non-visit [facility] Work Phone: Start: 12-25-2023 End: 12-25-2023 Patient encounter procedure [facility] Work Phone: Start: 12-21-2022 End: 12-22-[address] RONEN CHANDLER Facility:[facility] Start: 11-29-2022 End: 11-30-[address] SURESH PONCE Facility:[facility] Procedures Date Procedure Procedure Detail Performing Clinician Start: 09-19-2024 Quick Strep (POC) Plan of Treatment Date Care Activity Detail Author [facility] Payers Date Payer Category Payer Unknown [id number] 1970 Unknown [id number] 1959 [employer] [id number] [employer] Formerly [facility] [id number] Social History Date Type Detail Facility Start: 01-21-2024 End: 01-21-2024 Tobacco smoking status NHIS Never smoked tobacco (finding) [facility] Start: 1970 Sex Assigned At Male F [facility] Start: 09-19-2024 Sex Male (finding) [facility] Clinical Note 12-04-2022 Note Date & [...] by: RONEN CHANDLER Date: 2022-12-04 06:48 [facility] Evaluation note Note Date & Type Note Facility Evaluation note Diagnosis Onset Date Constipation acute GERD (gastroesophageal reflux disease) acute Screen for colon cancer acut e Screening for deficiency anemia acute Screening for lipid disorders acute Screening for metabolic disorder acute Screening for prostate cancer acute Hyperlipidemia acute Wellness examination acute [facility] Work Phone: Evaluation note Note Date & Type Note Facility Evaluation note Diagnosis Onset Date Resolution Sore throat acute September 19, 2024 9:16am [facility] Work Phone: Summary Purpose Family History Relationship Condition Age at Onset Recorded Date/T joyce Not Specified Malignant neoplasm Unknown Bowel dysfunction Unknown father Cerebrovascular accident (CVA) Unknown Not Specified Cerebrovascular accident (CVA) Unknown Relationship Condition Age at Onset Recorded Date/T joyce mother Malignant neoplasm Unknown Bowel dysfunction Unknown father Cerebrovascular accident (CVA) Unknown paternal grandfather Cerebrovascular accident (CVA) Un known Advance Directives Advance Directive Response Recorded Date/ Time Advance Directives No December 20, 2023 2:54pm Advance Directive Response Recorded Date/ Time Advance Directives No December 20, 2023 1:54pm Chief Complaint and Reason for Visit Chief Complaint ESTABLISH wellness Reason for Visit Constipation GERD (gastroesophageal reflux disease) Screen for colon cancer Screening for deficiency anemia Screening for lipid disorders Screening for metabolic disorder Screening for prostate cancer Hyperlipidemia Wellness examination Chief Complaint Admit Date Sore Throat/White Spots September 19 9:16am Reason for Visit Admit Date Sore throat September 19, 2024 9 :16am Additional Source Comments (unrecognized sect ion and content) No Status Records Found INFORMATION SOURCE (unrecogn ized section and content) DATE CREATED AUTHOR 12/28/2022 [facility] Care Teams (unrecognized sec tion and content) Team Status: Active Member Role Status Dates Simi ChirinosPARTHA hare EVALUATION SPECIALIST-C Primary Care Provider Active Team Status: Inactive Member Role Status Dates Simi ChirinosPARTHA hare EVALUATION SPECIALIST-C Primary Care Provider, Attending Provider Active Start: December 25, 2023 End: December 25, 2023 Team Status: Active Member Role Status Dates Simi PARTHA Watts EVALUATION SPECIALIST-C Primary Care Provider, Attending Provider Active Start: December 27, 2023 Team Status: Inactive Member Role Status Dates Simi ChirinosPARTHA hare EVALUATION SPECIALIST-C Primary Care Provider, Attending Provider Active Start: January 21, 2024 End: January 21, 2024 Team Status: Active Member Role Status Dates Simi PARTHA Watts EVALUATION SPECIALIST-C Primary Care Provider, Attending Provider Active Start: July 07, 2024 Team Status: Inactive Member Role Status Dates Simi ChirinosPARTHA hare EVALUATION SPECIALIST-C Primary Care Provider, Attending Provider Active Start: September 19, 2024 End: September 19, 2024 Goals (unrecognized section and content) Goals may be documented in a n alternate sectionGoals may be documented in an alternate section FOR RECORDS PERTAINING TO PATIENTS [...] BE BASED ON THE PRIMARY CLINICAL RECORDS. [employer] provides no warranty or guarantee of the accuracy or completeness of information in this document.
[2025-01-26 08:07] LABS: Basophils Absolute Auto 0.1 10^3/uL (0.0-0.1); Eosinophils Absolute Auto 0.5 10^3/uL (0.0-0.7); Eosinophils Percent Auto 8.8 % (0.9-7.0); Hematocrit 43.7 % (42.0-54.0); Hemoglobin 14.6 g/dL (14.0-18.0); Immature Granulocytes Abs Auto 0.02 10^3/uL (0.00-0.03); Immature Granulocytes Pct Auto 0.4 % (0.0-0.5); Mean Corpuscular HGB Conc 33.4 g/dL (29.9-35.2); Mean Corpuscular Hemoglobin 32.2 pg (25.9-34.0); Mean Corpuscular Volume 96.5 fL (80.0-94.0); Mean Platelet Volume 9.8 fL (9.5-13.5); Monocytes Absolute Auto 0.5 10^3/uL (0.3-0.8); Monocytes Percent Auto 9.1 % (1.7-12.0); Neutrophils Absolute Auto 2.5 10^3/uL (1.4-6.5); Neutrophils Percent Auto 43.7 % (43.0-75.0); Platelet Count 255 10^3/uL (150-450); Red Blood Count 4.53 10^6/uL (4.70-6.10); Red Cell Distribution Width 11.9 % (11.0-15.0); White Blood Count 5.6 10^3/uL (4.0-11.0)
[2025-01-26 11:37] LABS: Sodium 140 mmol/L (136-145)
[2025-01-26 11:38] LABS: Alanine Aminotransferase 39 U/L (16-63); Albumin Globulin Ratio 1.1; Albumin Level 3.6 g/dL (3.4-5.0); Alkaline Phosphatase 51 U/L (46-116); Anion Gap 9.6; Aspartate Amino Transferase 19 U/L (15-37); BUN Creatinine Ratio 22.4; Bilirubin Total 0.7 mg/dL (0.2-1.0); Calcium 8.9 mg/dL (8.5-10.1); Carbon Dioxide 29.7 mmol/L (21.0-32.0); Chloride 105 mmol/L (98-107); Chol HDL Ratio 3.8; Cholesterol 208 mg/dL (<=200); Estimated GFR (African America >60 (>=60 mL/min/1.73m^2); Estimated GFR (Non-African Ame >60 (>=60 mL/min/1.73m^2); Globulin 3.3 g/dL; Glucose 103 mg/dL (74-106); HDL Cholesterol 55 mg/dL (40-60); Potassium 4.3 mmol/L (3.5-5.1); Total Protein 6.9 g/dL (6.4-8.2); Triglycerides 114 mg/dL (<=150); VLDL CHOLESTEROL 22.8 mg/dL
== END 2025-01-26 07:29 | disposition home or self-care (01) ==
LOC: LAB 07:30
PROVIDERS: PCP Nurse Practitioner Family; Visit Provider Nurse Practitioner Family
DX: Z00.00 Encounter for general adult medical examination without abnormal findings (principal); Z12.5 Encounter for screening for malignant neoplasm of prostate; Z13.0 Encounter for screening for diseases of the blood and blood-forming organs and certain disorders involving the immune mechanism; Z13.228 Encounter for screening for other metabolic disorders; Z13.220 Encounter for screening for lipoid disorders
CPT/HCPCS: 36415; 80053; 80061; 85025; G0103